=== PATIENT | female | born 1960 | race Caucasian/White ===

== ENCOUNTER → 2019-01-14 | Outpatient (CLI) | payer OTHER ==
[2019-01-15 15:06] LABS: HPV 16 Negative (Negative); HPV 18 Negative (Negative); HPV OTHER HR TYPES Negative (Negative)
== END | disposition home or self-care (01) ==
LOC: LAB SHORT 12:31 → LAB 12:31
PROVIDERS: Nurse Practitioner Women's Health
DX: Z12.4 Encounter for screening for malignant neoplasm of cervix (principal)
CPT/HCPCS: 87624; G0123

== ENCOUNTER 2019-02-23 08:28 | Day surgery (SDC) | payer OTHER ==
[~2019-02-23] VITALS: Ht 160 cm; Wt 57.3 kg
[~2019-02-23 08:28] MED LIST: Aspirin EC81 MG PO; FISH OIL 1,0001 EAC1 PO; LOSARTAN-HCTZ1 EACH PO; RED YEAST RICE600 MG PO; VITAMIN D35000 UNI1 PO; VITAMIN E1000 UNIT PO
--- NOTE | 2019-02-23 09:15 | NUR ---
02/23/19 0915 Kathy Bae ONE BAD IV DUE TO INFULTRATION, ONE GOOD IV BY RN
[2019-02-23] MEDS ORDERED: METAMUCIL FREE822 GM (09:19)
== END 2019-02-23 10:38 | disposition home or self-care (01) ==
LOC: ORSCSDS 08:28
PROVIDERS: Internal Medicine Gastroenterology
PROC: 0DJD8ZZ Inspection of Lower Intestinal Tract, Via Natural or Artificial Opening Endoscopic (ICD-10-PCS; principal; 2019-02-23 09:45)
DX: Z12.11 Encounter for screening for malignant neoplasm of colon (principal); Z83.71 Family history of colonic polyps; K57.30 Diverticulosis of large intestine without perforation or abscess without bleeding; E11.9 Type 2 diabetes mellitus without complications; I10 Essential (primary) hypertension; M79.7 Fibromyalgia; R74.8 Abnormal levels of other serum enzymes; Z79.82 Long term (current) use of aspirin; Z79.899 Other long term (current) drug therapy
CPT/HCPCS: J2704; J7120